=== PATIENT | male | born 1960 | race Caucasian/White ===

== ENCOUNTER 2024-10-12 15:45 | Emergency (ER) | payer BC ==
[2024-10-12] MEDS ORDERED: Sodium Chloride 0.9% 10 ML Syringe FLUSH PRN (15:49)
[2024-10-12] MEDS ORDERED: Naloxone 0.4 MG/ML SDV IVPUSH PRN (15:51)
[2024-10-12] MEDS: Iopamidol 755 Mg/ML 100 ML Bottle IVPUSH ONE (16:27)
[2024-10-12 16:30] LABS: BASOPHILS ABSOLUTE AUTO 0.1 K/mm3 (0.0-0.2); BASOPHILS PERCENT AUTO 0.3 % (0.0-1.0); EOSINOPHILS ABSOLUTE AUTO 0.1 K/mm3 (0.0-0.4); EOSINOPHILS PERCENT AUTO 0.7 % (0.0-6.0); IMMATURE GRAN ABSOLUTE AUTO 0.08 K/mm3 (0.00-0.05); IMMATURE GRAN PERCENT AUTO 0.5 % (0.0-0.4); LYMPHOCYTES ABSOLUTE AUTO 2.9 K/mm3 (1.0-4.8); LYMPHOCYTES PERCENT AUTO 19.0 % (24.0-44.0); MEAN PLATELET VOLUME 9.2 fl (9.4-12.4); MONOCYTES ABSOLUTE AUTO 0.7 K/mm3 (0.0-0.8); MONOCYTES PERCENT AUTO 4.8 % (0.0-8.0); NEUTROPHILS ABSOLUTE AUTO 11.3 K/mm3 (1.8-7.7); NEUTROPHILS PERCENT AUTO 74.7 % (41.0-71.0); NRBC ABSOLUTE 0.00 (0.00-0.02); NRBC PERCENT 0.0 % (0.0-0.2); PLATELET COUNT,PLT 173 K/mm3 (150-400); RED BLOOD CELL COUNT 2.86 M/mm3 (4.52-5.90); WHITE BLOOD CELL COUNT,WBC 15.11 K/mm3 (3.9-11.3)
[2024-10-12] MEDS: Ondansetron 4 MG/2 ML SDV IVPUSH ONE (16:30)
[2024-10-12] MEDS: fentaNYL 100 MCG/2 ML SDV IVPUSH ONE ×3 (16:31→19:02)
[2024-10-12] MEDS: fentaNYL 100 MCG/2 ML SDV ONE (16:44)
[2024-10-12 16:52] LABS: INR 1.14
[2024-10-12 17:03] LABS: LACTIC ACID 4.7 mmol/L (0.4-2.0)
[2024-10-12 17:11] LABS: A/G RATIO 1.0 (1-2); ALANINE AMINOTRANSFERASE,ALT 90 U/L (16-63); ASPARTATE AMNIOTRANSFERASE,AST 73 U/L (15-37); BILIRUBIN TOTAL 0.2 mg/dL (0.2-1.0); BLOOD UREA NITROGEN,BUN 23 mg/dL (7-18); CARBON DIOXIDE,CO2 22 mEq/L (21-32); CHLORIDE,CL 103 mEq/L (98-107); CREATININE 1.3 mg/dL (0.7-1.3); ESTIMATED GFR 61 mL/min (>60); ETHANOL BLOOD MEDICAL 0.09 gm% (0.00); GLUCOSE RANDOM 194 mg/dL (70-99); POTASSIUM,K 3.4 mEq/L (3.5-5.1); PROTEIN TOTAL,TP 4.7 g/dl (6.4-8.2); SODIUM,NA 137 mEq/L (136-145); TROPONIN I HIGH SENSITIVITY 5 pg/mL (<=76)
== END 2024-10-12 19:25 ==
LOC: JD.ED 15:45
DX: S36.039A Unspecified laceration of spleen, initial encounter (principal); T79.4XXA Traumatic shock, initial encounter; S27.1XXA Traumatic hemothorax, initial encounter; S22.5XXA Flail chest, initial encounter for closed fracture; J96.01 Acute respiratory failure with hypoxia; Z88.1 Allergy status to other antibiotic agents; Z79.82 Long term (current) use of aspirin; Z79.899 Other long term (current) drug therapy; Z79.84 Long term (current) use of oral hypoglycemic drugs; W14.XXXA Fall from tree, initial encounter
CPT/HCPCS: 36415; 36430; 70450; 71045; 71260; 72125; 72128; 72131; 72170; 74177; 80053; 80307; 83605; 83690; 83735; 83880; 84484; 85025; 85610; 86850; 86900; 86901; 86922; 93005; 96374; 96375; 96376; 99291; G0390; J2405; J3010; P9016; P9017; Q9967; 93010; 99292